=== PATIENT | female | born 2000 | race Caucasian/White ===

== ENCOUNTER → 2022-04-12 18:22 | Outpatient (CLI) | payer OTHER, SELFPAY ==
--- NOTE | 2022-04-12 | DI.MRI.S_ITS ---
PROCEDURE: MR KNEE LT WO CON INDICATIONS: Pain in left knee TECHNIQUE: Noncontrast sagittal PD fast spin echo and T2 fast spin echo with fat saturation, sagittal 3-D FLASH with fat saturation; coronal T1 spin echo and PD fast spin echo with fat saturation, and axial PD fast spin echo with fat saturation through the knee. COMPARISON: None. FINDINGS: Image quality: Excellent. Anterior Cruciate Ligament: Intact. Posterior Cruciate Ligament: Intact. Medial Collateral Ligament: Intact. Lateral Collateral Ligament: Intact. Medial Meniscus: Intact. Lateral Meniscus: Intact. Medial and Lateral Tendons: The semimembranosus tendon insertions and meniscocapsular junction appear intact. Visualized portions of the pes anserinus tendons appear normal. No abnormal bursal fluid. The long and short heads of the biceps femoris tendon appear intact. The popliteus tendon appears intact. No signs of posterolateral corner injury. Iliotibial band appears normal. Anterior Structures: There is mild patella amilcar. The distal quadriceps tendon is intact. No patellar subluxation. No femoral trochlear dysplasia or ventral trochlear prominence. No edema in the infrapatellar fat pad. Bones: No acute trabecular bone injury or fracture. Medial Femorotibial Cartilage: Intact. Lateral Femorotibial Cartilage: Intact. Patellofemoral Cartilage: Intact. Soft Tissues: A physiologic amount of joint fluid is present. Trace medial popliteal cyst. The musculature surrounding the knee is normal in bulk. IMPRESSION: 1. No acute trabecular bone injury. Intact cruciate and collateral ligaments. No meniscal tear is seen. 2. Mild patella amilcar. Dictated by: Donovan Leone M.D. on 04/13/2022 at 9:17 Approved by: Donovan Leone M.D. on 04/13/2022 at 9:25
== END ==
PROVIDERS: Referring Provider Family Medicine; Visit Provider Family Medicine
DX: M25.562 Pain in left knee (principal)
CPT/HCPCS: 73721

== ENCOUNTER → 2023-01-31 15:53 | Outpatient (CLI) | payer OTHER, SELFPAY ==
--- NOTE | 2023-01-31 | DI.ECHO.S_ITS ---
[facility] +---------+ : : [address] : [place] : : : : [phone] : : : : Phone: [phone]+ Echocardiogram Report + + :Name: TYE SHIRLEY Study Date: 01/31/2023 Height: 60 in : :[facility] ReadingLocation: Weight: 145 lb : : Gender: Female BSA: 1.6 m2 : :: 2000 Age: 22 yrs BP: 125/80 mmHg: :Reason For Study: TACHYCARDIA HR: 92 : :Ordering Physician: Kina, : :Wm Performed By: DIOGENES RIZO : :Referring: Wm Castanon : + + Interpretation Summary 1) Normal left ventricular thickness, size, wall motion, and systolic function (EF 60-65%). 2) Normal right ventricular size and function. 3) No significant valvular abnormalities. 4) No prior Echo available for comparison. Procedure: A two-dimensional transthoracic echocardiogram with color flow and Doppler was performed. The study quality was technically adequate. There is no prior echocardiogram noted for this patient. The patient was in a tachycardic rhythm during the exam. Left Ventricle: The left ventricle is normal in size and wall thickness. Left ventricular systolic function is normal. The ejection fraction is estimated to be 60-65%. Left ventricular wall motion is normal. Diastolic parameters suggest probable normal left ventricular diastolic function and normal filling pressures. Right Ventricle: The right ventricle is normal in size and function. Atria: Both atria are normal in size. There is no Doppler evidence for an interatrial shunt. Mitral Valve: The mitral valve is normal in structure and function. There is trace mitral regurgitation. Aortic Valve: The aortic valve is trileaflet. The aortic valve opens well. There is no aortic valve stenosis. No aortic regurgitation is present. Tricuspid Valve: The tricuspid valve is normal in structure and function. There is mild tricuspid regurgitation. The right ventricular systolic pressure is estimated to be at least 28 mmHg based on an estimated right atrial pressure of 3 mm Hg. Pulmonic Valve: The pulmonic valve is normal in structure and function. There is no pulmonic valvular regurgitation. Great Vessels: The aortic root is normal size. The ascending aorta is normal in size. The IVC is of normal diameter and collapses greater than 50% with a sniff. This suggests a low right atrial pressure of 3 mm Hg. Pericardium/ Pleura There is no pericardial effusion. There is no pleural effusion. MMode/2D Measurements & Calculations LVIDd: 4.1 cm LVOT diam: 1.8 cm LVIDs: 2.6 cm Ao root diam: 2.8 cm FS: 36.6 % asc Aorta Diam: 2.4 cm IVSd: 0.90 cm LVPWd: 0.80 cm LV aguilar. diameter/BSA (cm/m^2): 2.5 LV sys. diameter/BSA (cm/m^2): 1.6 LA A2 area: 15.1 cm2 RA long axis: 4.0 cm LA A4 area: 12.2 cm2 LA length (vol): 4.0 cm LA vol: 38.9 ml LA vol index: 23.9 ml/m2 LVLs ap4: 5.5 cm LVLd ap2: 7.7 cm LVLs ap2: 6.3 cm TAPSE_phl: 1.8 cm Doppler Measurements & Calculations Ao V2 max: 148.0 cm/sec LVOT Max Ramin: 135.0 cm/sec Ao V2 mean: 108.0 cm/sec LV V1 max P.3 mmHg Ao max P.0 mmHg LV V1 VTI: 25.9 cm Ao mean P.0 mmHg CHRISTOPHER(I,D): 2.4 cm2 Ao V2 VTI: 27.7 cm CHRISTOPHER(V,D): 2.3 cm2 sev ratio: 0.94 CHRISTOPHER indexed to BSA (cm^2/m^2): 1.5 MV E max ramin: 129.0 cm/sec TR max ramin: 248.0 cm/sec MV A max ramin: 71.5 cm/sec TR max P.6 mmHg MV E/A: 1.8 PA V2 max: 115.0 cm/sec Med Peak E' Ramin: 16.6 cm/sec PA V2 mean: 85.8 cm/sec E/E' med: 7.8 PA mean P.0 mmHg Lat Peak E' Ramin: 18.1 cm/sec PA pr(Accel): 31.3 mmHg E/E' lat: 7.1 E/e' average: 7.4 MV dec time: 0.17 sec SV(LVOT): 65.9 ml AV VR_phl: 0.91 CHRISTOPHER(VTI)/BSA_phl: 1.4 MV P1/2t-pr_phl: 49.0 msec Reading Physician:05:00 PM
== END ==
PROVIDERS: PCP Family Medicine; Referring Provider Family Medicine; Visit Provider Family Medicine
DX: R00.0 Tachycardia, unspecified (principal); I07.1 Rheumatic tricuspid insufficiency
CPT/HCPCS: 93306

== ENCOUNTER → 2023-08-21 15:15 | Outpatient (CLI) | payer OTHER, SELFPAY ==
--- NOTE | 2023-08-21 | DI.NM.S_ITS ---
PROCEDURE: NM EXERCISE TREADMILL NON NUC COMPARISON: None. INDICATIONS: Tachycardia, Palpitations, Shortness of breath FINDINGS: Rest ECG sinus tachycardia 110 bpm. Ariel protocol 9:40, heart rate at the end of stage I 167 bpm, maximum heart rate 204 bpm, maximum blood pressure 160/86, 10.1 METS, REINALDO +10%. Exercise ECG sinus tachycardia, no ST segment changes or arrhythmias. The patient complained of chest burning at the end of exercise which resolved with rest. IMPRESSION: Low risk study for ischemia. Resting tachycardia with accelerated heart rate response to exercise. Normal blood pressure response to exercise. Slightly reduced exercise capacity. Dictated by: Stefanie Ocampo D.O. on 08/21/2023 at 17:17 Approved by: Stefanie Ocampo D.O. on 08/21/2023 at 17:21
== END ==
PROVIDERS: PCP Family Medicine; Referring Provider Internal Medicine Cardiovascular Disease; Visit Provider Internal Medicine Cardiovascular Disease
DX: R42 Dizziness and giddiness (principal); R00.0 Tachycardia, unspecified; R00.2 Palpitations; R06.02 Shortness of breath
CPT/HCPCS: 93017

== ENCOUNTER → 2024-02-13 07:47 | Outpatient (CLI) | payer OTHER, SELFPAY | LOC: PHYS 07:48 | PROVIDERS: Family Provider Orthopaedic Surgery; PCP Orthopaedic Surgery; Referring Provider Orthopaedic Surgery; Visit Provider Orthopaedic Surgery | DX: R20.2 Paresthesia of skin (principal) | CPT/HCPCS: 95885; 95886; 95913 ==